=== PATIENT | male | born 1965 | race Caucasian/White ===

== ENCOUNTER 2019-02-03 17:15 | Emergency (ER) | payer SELFPAY ==
[2019-02-03 17:17] VITALS: BP 100/66; PULSE 57; RESP 18; TEMP 35.7; O2SAT 96; BMI 22.1
--- NOTE | 2019-02-03 17:25 | RAD_ITS ---
STUDY: X-RAY - LEFT SHOULDER REASON FOR EXAM: Male, 53 years old. Trauma TECHNIQUE: 4 view(s) of the shoulder. COMPARISON: None. FINDINGS: Normal glenohumeral articulation. There is a grade 3 left AC joint separation. Normal acromion. Normal humeral head and visualized proximal humerus. The soft tissue structures are unremarkable. Normal visualized pulmonary apex. RAD/Shoulder min 2 Views IMPRESSION: Grade 3 left AC joint separation. Electronically Signed: Dennis Knutson MD at 18:48 EDT , Service support ,
--- NOTE | 2019-02-03 17:30 | ED.DCSUM_ITS ---
- ER Visit Summary Date of Service: 02/03/19 Chief Complaint: Left shoulder pain History of Present Illness: The patient is a 53 M with left shoulder pain and deformity. The patient was chasing a fly ball and fell, landing on his left shoulder. Physical Examination: Patient has tenderness to his left shoulder with deformity. Clavicle nontender. Back and neck nontender. Head unremarkable. Skin intact. No numbness noted. Neurovascular intact distally. Test Results: X-rays ordered. Emergency Department Course and Treatment: Last oral intake was about 3 hours ago. Patient was n.p.o. Placed on a monitor. Based on oxygen. IV placed. Treated with fentanyl. Will check x-rays. X-rays show a grade 3 AC joint separation. Patient was placed in a sling and referred to orthopedics for follow-up. Will prescribe pain medicine. Treatment Plan: As above Disposition: Discharge Impression: 1. Left AC joint separation This note was generated with [employer] dictation software. It may contain incorrect words, spelling, and punctuation that were not noted in review of the chart prior to signing ED Disposition - Plan for ED Patient: Referrals: NOT,DEFINED [NON-STAFF] -
[2019-02-03] MEDS: fentaNYL 100 MCG/2 ML Ampul 50 MCG IV (18:08)
[2019-02-03 18:21] VITALS: BP 142/101; PULSE 62; RESP 19; O2SAT 98
[2019-02-03 19:04] VITALS: BP 133/89; PULSE 60; RESP 17; O2SAT 98
--- NOTE | 2019-02-03 19:08 | ED.DEP ---
ED Disposition - Plan for ED Patient: Instructions: ED Sprain AC Joint Prescriptions: Oxycodone HCl/Acetaminophen [Percocet 5/325] 1 tab PO Q6H PRN PRN 3 Days #12 tab PRN Reason: Pain Referrals: Merna Nelson DO [STAFF PHYSICIAN] -
[2019-02-03 19:42] VITALS: BP 138/74; PULSE 87; RESP 16; O2SAT 99
[2019-02-03] MEDS: oxyCODONE 5 MG Tablet PO (20:02)
== END 2019-02-03 19:43 | disposition home or self-care (01) ==
LOC: ED 17:34
PROVIDERS: Emergency Provider Emergency Medicine
DX: S43.102A Unspecified dislocation of left acromioclavicular joint, initial encounter (principal); W19.XXXA Unspecified fall, initial encounter; Y93.02 Activity, running; Y92.9 Unspecified place or not applicable; Y99.9 Unspecified external cause status
CPT/HCPCS: 73030; 96374; 99285; A4216

== ENCOUNTER 2021-05-20 08:23 | Emergency (ER) | payer MEDICARE, SELFPAY ==
[2021-05-20 08:24] VITALS: BP 127/95; PULSE 115; RESP 18; TEMP 36.6; O2SAT 96; BMI 24.5
[2021-05-20 09:12] VITALS: BP 127/95; PULSE 115; RESP 18; TEMP 36.6; O2SAT 96
--- NOTE | 2021-05-20 09:12 | ED.VIS.GI ---
HPI HPI - GI History of Present Illness Chief Complaint: Nausea/Vomiting Informant: patient Abdominal Pain/Flank Pain Onset: Days Context: Gradual Onset Timing: Intermittent Current Severity: Mild Maximum Severity: Mild Nausea/Vomiting/Emesis GI Symptom: Positive for Nausea; Negative for Vomiting Onset: Days Quality: Negative for Nonbilious Diarrhea/Melena/Hematochezia GI Symptom: Negative for Diarrhea, Melena and Hematochezia Associated Symptoms Associated Symptoms: Negative for Dysuria, Frequency, Hematuria and Urgency Narrative Narrative: 55-year-old male seen past medical history. Has had gradual onset of nausea since Monday. Is been intermittent. No vomiting. No diarrhea. No fever. No dysuria. No head injury. Denies any cough or shortness of breath. Said he had this 1 other time before did not get a specific he denies any recent weight loss. Prior similar symptoms: Yes Recent Illness/Hospitalization: No PFSH PFSH no medical history Home Medications ondansetron HCl [Zofran] 4 mg PO Q8H PRN #7 tab 05/20/21 [Rx Last Taken Unknown] Allergy/AdvReac Type Severity Reaction Status Date / Time No Known Allergies Allergy Verified 05/20/21 08:27 Social History Smoking Status: Never smoker ROS ROS ED ROS Narrative Nausea. Review of Systems ROS Unobtainable: Denies due to encephalopathy Constitutional Constitutional ED: Denies chills or fever(s) ENT ENT ED: Denies ear pain or rhinorrhea Cardiovascular Cardiovascular: Denies chest pain Respiratory/Chest Respiratory/Chest: Denies dyspnea Gastrointestinal Gastrointestinal: Reports nausea; Denies abdominal pain, diarrhea, melena or vomiting Genitourinary Genitourinary ED: Denies dysuria Musculoskeletal Musculoskeletal: Denies myalgias Integumentary Denies rash Neurologic Neurologic: Denies headache(s) Psychiatric Psychiatric: Denies depression Endocrine Endocrinology: Denies polyuria Hematologic/Lymphatic Hematologic/Lymphatic: Denies easy bruising Allergic/Immunologic Allergic/Immunologic ED: Denies urticaria EXAM Physical Exam Narrative Exam Narrative: Middle-age male no acute distress normal exam. Abdomen benign nontender. Neurologic exam normal. Const Vital Signs: 05/20/21 08:24 05/20/21 09:12 Temperature 98 F 98 F Temperature Source Temporal Temporal Pulse Rate 115 H 115 H Respiratory Rate 18 18 Blood Pressure 127/95 H 127/95 H Blood Pressure Mean 105 105 Pulse Ox 96 96 Oxygen Delivery Method Room Air Room Air Positive well nourished and well developed; Negative for obese, cachectic, contractures or unkempt General Appearance ED: well developed and NAD; Negative for unkempt, cachectic or contractures Nutritional Appearance: Negative for cachectic or obese HEENT Reports moist mucous membranes normocephalic and atraumatic Eyes PERRL and EOMs intact bilaterally Neck no lymphadenopathy, supple and no JVD General: Negative for tenderness Resp normal respiratory effort and clear to auscultation bilaterally Auscultation: Negative for rales, rhonchi or wheezes Cardio regular rate, regular rhythm, S1 normal heart sound, S2 normal heart sound and no murmurs GI non-tender, non-distended and no masses Auscultation: normoactive bowel sounds Palpation: soft; Negative for tender, guarding or rigid Back/Spine no CVA tenderness Extremity full ROM General Extremety ED: Negative for edema or tenderness General Extremity: Negative for edema Neuro CN's II-XII intact bilaterally and moves all extremities Sensorium / Orientation: alert, oriented to person, oriented to place and oriented to time; Negative for confused or lethargic Psych Appearance: Negative for unkempt MDM MDM MDM Narrative Medical decision making narrative: Middle-age male 5 days of nausea. Exam benign. Be treated with IV fluids and IV Zofran. Screening labs being obtained. Repeat exam patient is doing well at 9:52 AM. We went over his initial test results. His liver enzymes are slightly abnormal. For that reason I would add a right upper quadrant ultrasound to evaluate his gallbladder and also a Covid test. Repeat exam patient is doing well at 11:12 AM will be discharged home on Zofran. Patient doing well at 1118 will be discharged home on Zofran. Covid precautions. Lab Data Attestation: I reviewed the patient's lab results. Lab results narrative: CBC shows a white count of 4.8 hemoglobin of 15. Electrolytes show a normal gap of 7 creatinine 1.1. AST is slightly elevated 62 ALT is slightly elevated 93 and alk phos 162. total bilirubin is normal. Motrin the radiologist showed a single solitary gallstone. No signs of biliary obstruction or acute cholecystitis. Covid was positive which may also explain plain his elevated liver enzymes. Labs: Laboratory Results - last 24 hr 05/20/21 05/20/21 09:10 09:10 WBC 4.8 RBC 4.97 Hgb 15.2 Hct 44.7 MCV 89.9 MCH 30.6 MCHC 34.0 RDW Std Deviation 41.3 RDW Coeff of Elvira 12.5 Plt Count 261 MPV 9.7 Immature Gran % (Auto) 0.400 Neut % (Auto) 73.0 H Lymph % (Auto) 15.9 L Fisher % (Auto) 8.6 Eos % (Auto) 1.9 Baso % (Auto) 0.2 Absolute Neuts (auto) 3.5 Absolute Lymphs (auto) 0.76 L Nucleated RBC % 0 Sodium 139 Potassium 3.6 Chloride 107 Carbon Dioxide 25.0 Anion Gap 7 BUN 13 Creatinine 1.11 Estim Creat Clear Calc 71.13 Est GFR (MDRD) Af Amer 89 Est GFR (MDRD) Non-Af 73 BUN/Creatinine Ratio 11.7 Glucose 115 H Calcium 9.2 Total Bilirubin 0.70 AST 62 H ALT 93 H Alkaline Phosphatase 165 H Total Protein 8.1 Albumin 3.4 Globulin 4.7 H Albumin/Globulin Ratio 0.7 L Radiography Diagnostic Testing: Radiology Impression Gallbladder Ultrasound 05/20/21 09:52 IMPRESSION: Solitary gallstone. Electronically Signed: Maicol Clifton MD at 10:59 EDT , Service support , Discharge Plan Triage Chief Complaint: Nausea/Vomiting ED Provider: Alexei Winter Dx/Rx/DC Orders Clinical Impression: COVID Instructions: Human Coronaviruses Prescriptions: New ondansetron HCl [Zofran] 4 mg tablet 4 mg PO Q8H PRN (Reason: nausea and vomiting) Qty: 7 RF: 0 Primary Care Provider: Care Physician,No Primary Referrals: Raphael Sousa MD [STAFF PHYSICIAN] - 1 Week if not improving Care Physician,No Primary [Primary Care Provider] - Activity Restrictions/Additional Instructions: Your ultrasound showed a single gallstone may not be related to your nausea. Your liver enzymes are only slightly elevated. This can be rechecked in the next several weeks by your primary care physician. Zofran as needed for nausea. You are Covid positive. Quarantine for 10 days from the onset of your symptoms. This may or began to be slightly elevated. Return if you are feeling a lot worse. Disposition Disposition: Home, Self Care
--- NOTE | 2021-05-20 09:13 | ED.VIS.GI ---
HPI HPI - GI History of Present Illness Chief Complaint: Nausea/Vomiting PFSH PFSH Allergy/AdvReac Type Severity Reaction Status Date / Time No Known Allergies Allergy Verified 05/20/21 08:27 Social History (Updated 07/03/20 @ 09:21 by Marquis TORRES, PA) Smoking Status: Never smoker EXAM Physical Exam Const Vital Signs: 05/20/21 08:24 Temperature 98 F Temperature Source Temporal Pulse Rate 115 H Respiratory Rate 18 Blood Pressure 127/95 H Blood Pressure Mean 105 Pulse Ox 96 Oxygen Delivery Method Room Air Discharge Plan Triage Chief Complaint: Nausea/Vomiting ED Provider: Alexei Winter Dx/Rx/DC Orders Primary Care Provider: Care Physician,No Primary
[2021-05-20] MEDS: 0.9% Normal Saline 1,000 ML 1000 ML IV (09:20)
[2021-05-20] MEDS: Ondansetron 4 MG/2 ML Vial IV (09:21)
[2021-05-20 09:22] LABS: Absolute Lymphocyte Count 0.76 X10^3/uL (0.83-4.51); Absolute Neutrophil Count 3.5 X10^3/uL (2.0-7.7); Basophil# 0.01 X10^3/uL; Basophil% 0.2 % (0-1); Eosinophil# 0.09 X10^3/uL; Eosinophils% 1.9 % (0-5); Hematocrit 44.7 % (40-54); Hemoglobin 15.2 g/dL (13.0-16.5); Lymphocyte # 0.76 X10^3/ul (0.83-4.51); Lymphocyte % 15.9 % (19-41); Mean Corpuscular Hgb 30.6 pg (27.0-32.0); Mean Corpuscular Volume 89.9 fL (80-94); Mean Platelet Vol. 9.7 fl (6.2-12.0); Monocyte# 0.41 X10^3/uL; Monocyte% 8.6 % (0-10); NRBC Flagged by Analyzer 0 % (0-5); Neutrophil # 3.49 X10^3/uL (2.7-7.7); Platelet Count 261 K/mm3 (150-450); RBC Distribution Width CV 12.5 % (11.6-14.6); RBC Distribution Width SD 41.3 fl (35.1-43.9); Red Blood Count 4.97 M/mm3 (4.6-6.2); White Blood Count 4.8 K/mm3 (4.4-11.0)
[2021-05-20 09:38] LABS: ALB/GLOB Ratio 0.7 RATIO (0.9-2.4); AST(SGOT) 62 U/L (15-37); Alanine Aminotransfer ALT/SGPT 93 U/L (16-61); Albumin, Serum 3.4 g/dL (3.2-5.0); Alkaline Phosphatase 165 U/L (45-117); Anion Gap 7 (5-15); BUN 13 mg/dL (7-18); BUN/Creat Ratio 11.7 RATIO (10-20); Calcium,Total 9.2 mg/dL (8.5-10.1); Chloride 107 mmol/L (98-107); Creatinine, Serum 1.11 mg/dL (0.70-1.30); EST Glomerular Filtration Rate 73 mL/min (>60); Est Glom Filt Rate - Afr Amer 89 mL/min (>60); Estimated Creatinine Clearance 71.13 ml/min; Globulin 4.7 g/dL (2.2-4.2); Glucose 115 mg/dL (74-106); Potassium 3.6 mmol/L (3.5-5.1); Protein, Total 8.1 g/dL (6.4-8.2); Sodium Level 139 mmol/L (136-145)
--- NOTE | 2021-05-20 09:52 | US_ITS ---
STUDY: ABDOMINAL ULTRASOUND - RIGHT UPPER QUADRANT REASON FOR VISIT: Male, 55 years old elevated liver enzymes TECHNIQUE: Ultrasound evaluation of the right upper quadrant was performed with real-time and static eubanks-scale imaging. TECHNICAL QUALITY: Adequate. COMPARISON: None. FINDINGS: Liver: The liver measures 15.1 cm. There is normal echogenicity of the liver. The bile ducts are within normal limits. There is hepatic color flow. The direction of portal flow is hepatopetal. There is no demonstrated mass lesion. Gallbladder: Normal distended gallbladder. The gallbladder wall measures 2.5 mm. There is a negative sonographic Finnegan''s sign. There is no pericholecystic fluid. There is a solitary echogenic gallstone within the gallbladder. This measures 1.2 cm x 1 cm x 0.9 cm. Common Bile Duct (C.B.D.): The common bile duct measures 2.2 mm. Pancreas: Normal size of the head, body and tail of the pancreas. There is normal echogenicity of the pancreas. There is no demonstrated pancreatic mass or cyst. Right Kidney: Normal size of the right kidney. The right kidney measures 10.2 cm x 5.4 cm x 4.7 cm. Normal renal cortex. The right cortex measures 1.3 cm. There is no demonstrated renal mass or cyst. There is no right hydronephrosis. US/Gallbladder IMPRESSION: Solitary gallstone. Electronically Signed: Maicol Clifton MD at 10:59 EDT , Service support ,
--- NOTE | 2021-05-20 10:50 | CM.ED ---
SAAMNTA Note: Reason for Referral: Self Pay and No Primary Care Provider Referral Source: Case Find SW met with patient and his family member in his room. Patient gave verbal consent to speak in the presence of his family members. Patient confirmed he has no insurance. SW provided him with self pay packet. SW also provided patient with Where to Go when handout and also handout on list of Primary Care Physicians list from [facility]. No other issues or needs reported. Plan: Provided patient with resources on primary care provider and when to go where and self pay packet Lakisha OJEDA
== END 2021-05-20 11:26 | disposition home or self-care (01) ==
PROVIDERS: Emergency Provider Emergency Medicine
DX: U07.1 COVID-19 (principal); K80.20 Calculus of gallbladder without cholecystitis without obstruction
CPT/HCPCS: 76705; 80053; 85025; 87426; 96361; 96374; 99283; J7030; A4216; J2405